=== PATIENT | female | born 1950 | race Hispanic/Latino ===

== ENCOUNTER 2022-08-18 21:35 | Inpatient (IN) | payer OTHER ==
[2022-08-18] MEDS ORDERED: Senokot S 8.6-50 MG TAB PO PRN (22:08)
[2022-08-18] MEDS ORDERED: Dextrose 5% in Water 1,000 ML IV PRN (22:08)
[2022-08-18] MEDS ORDERED: Dextrose 50% Abboject 50 ML SYRINGE SLOW IVP PRN (22:08)
[2022-08-18] MEDS ORDERED: Calcium Carbonate 500 MG ChewTAB PO PRN (22:08)
[2022-08-18] MEDS ORDERED: Guaifenesin DM 100-10/5 ML UDCUP PO PRN (22:08)
[2022-08-18] MEDS ORDERED: Ondansetron PF 4 MG/2 ML Vial IVP PRN (22:08)
[2022-08-18] MEDS ORDERED: Nitroglycerin 2% Ointment 1 INCH/1 GM Packet TOP SCH ×2 (22:30→23:00)
[2022-08-18] MEDS: Furosemide 20 MG/2 ML VIAL SLOW IVP SCH ×2 (22:39→22:40)
[2022-08-18] MEDS ORDERED: Aspirin 81 mg Enteric Coated Tablet PO SCH (23:00)
[2022-08-18] MEDS ORDERED: Carvedilol 12.5 MG TAB PO SCH (23:00)
[2022-08-18 23:21] VITALS: BMI 28.3
[2022-08-18 23:36] LABS: CKMB 0.9 ng/mL (0-6.6)
[2022-08-18 23:47] LABS: Legionella Urinary Ag Negative (Negative); Strep pneumo Urine Ag NEGATIVE (NEGATIVE)
[2022-08-19] MEDS ORDERED: Losartan 25 MG TAB PO SCH ×2 (00:45→09:00)
[2022-08-19] MEDS ORDERED: Labetalol HCl 100 MG/20 ML VIAL SLOW IVP SCH (04:30)
[2022-08-19 06:04] LABS: #Eosinphils 0.1 10x3/uL (0.0-0.5); #Monocytes 0.8 10x3/uL (0.0-1.1); #Neutrophils 10.2 10x3/uL (1.5-8.4); %Basophils 0.3 % (0.0-2.0); %Eosinophils 0.6 % (0.0-6.0); %Lymphocytes 3.6 % (18.0-47.0); %Monocytes 7.2 % (0.0-10.0); %Neutrophils 86.9 % (40.0-75.0); Mean Corpuscular HGB CONC 30.2 g/dL (32.0-36.0); Mean Corpuscular Hemoglobin 25.5 pg (27.0-33.0); Mean Corpuscular Volume 84.4 fl (81.6-98.3); Mean Platelet Volume 11.6 fl (7.4-10.4); Platelet Count 315 10x3/uL (150-450); RBC Distribution Width 18.2 % (11.5-14.5); Red Blood Cell (RBC) Count 3.92 10x6/uL (3.90-5.03); White Blood Cell (WBC) Count 11.7 10x3/uL (3.5-10.5)
[2022-08-19 06:29] LABS: Anion Gap 21 mmol/L (10-20); BUN (Urea Nitrogen) 18 mg/dL (9.8-20.1); Calc. Creatinine Clearance 76 mL/min (70-130); Calcium 8.6 mg/dL (7.8-10.44); Carbon Dioxide 21 mmol/L (23-31); Chloride 101 mmol/L (98-107); Estimated GFR 88; Glucose 121 mg/dL (83-110); Potassium 4.7 mmol/L (3.5-5.1); Sodium 138 mmol/L (136-145)
[2022-08-19] MEDS: Furosemide 40 MG/4 ML VIAL SLOW IVP SCH ×2 (06:39→09:25)
[2022-08-19 07:32] LABS: CKMB 1.3 ng/mL (0-6.6)
[2022-08-19] MEDS ORDERED: Tacrolimus 1 MG CAP PO SCH (09:00)
[2022-08-19] MEDS ORDERED: Losartan Potassium 50 MG TAB PO SCH (09:00)
[2022-08-19] MEDS: Aspirin 81 mg Enteric Coated Tablet PO SCH (09:25)
[2022-08-19] MEDS: hydrALAZINE 25 MG TAB PO SCH ×3 (09:25→21:00)
[2022-08-19] MEDS: NIFEdipine XL 60 MG TAB PO SCH ×2 (09:25→21:00)
[2022-08-19] MEDS: glipiZIDE 5 MG TAB PO SCH (09:26)
[2022-08-19] MEDS: Carvedilol 25 MG TAB PO SCH ×2 (09:26→15:33)
[2022-08-19] MEDS: Mycophenolate 250 MG CAP PO SCH ×2 (09:26→21:39)
[2022-08-19] MEDS: predniSONE 5 MG TAB PO SCH (10:22)
[2022-08-19] MEDS: Tacrolimus 1 MG CAP PO SCH ×2 (10:22→21:37)
[2022-08-19] MEDS: HumaLOG 300 UNITS/3 ML VIAL SC PRN ×2 (12:12→16:49)
[2022-08-19] MEDS ORDERED: Communication Order-Pharmacy FS SCH (12:45)
[2022-08-20 05:50] LABS: #Eosinphils 0.3 10x3/uL (0.0-0.5); #Neutrophils 8.8 10x3/uL (1.5-8.4); %Basophils 0.3 % (0.0-2.0); %Eosinophils 2.4 % (0.0-6.0); %Lymphocytes 4.2 % (18.0-47.0); %Monocytes 9.5 % (0.0-10.0); %Neutrophils 83.1 % (40.0-75.0); Mean Corpuscular HGB CONC 30.6 g/dL (32.0-36.0); Mean Corpuscular Hemoglobin 25.4 pg (27.0-33.0); Mean Corpuscular Volume 83.2 fl (81.6-98.3); Mean Platelet Volume 10.8 fl (7.4-10.4); Platelet Count 271 10x3/uL (150-450); RBC Distribution Width 17.7 % (11.5-14.5); Red Blood Cell (RBC) Count 3.93 10x6/uL (3.90-5.03); White Blood Cell (WBC) Count 10.6 10x3/uL (3.5-10.5)
[2022-08-20 05:53] LABS: INR-International Normal Ratio 1.2; PTT 29.3 sec (22.0-33.0); Prothrombin Time 12.5 sec (9.5-12.1)
[2022-08-20 05:57] LABS: ALT (SGPT) 10 U/L (8-55); AST (SGOT) 14 U/L (5-34); Albumin 3.4 g/dL (3.4-4.8); Alkaline Phosphatase 50 U/L (40-110); Anion Gap 16 mmol/L (10-20); BUN (Urea Nitrogen) 19 mg/dL (9.8-20.1); Bilirubin, Total 1.3 mg/dL (0.2-1.2); Calc. Creatinine Clearance 75 mL/min (70-130); Calcium 8.9 mg/dL (7.8-10.44); Carbon Dioxide 28 mmol/L (23-31); Chloride 98 mmol/L (98-107); Estimated GFR 86; Globulin 2.7 g/dL (2.4-3.5); Glucose 120 mg/dL (83-110); Potassium 3.4 mmol/L (3.5-5.1); Protein, Total 6.1 g/dL (5.8-8.1); Sodium 139 mmol/L (136-145)
[2022-08-20] MEDS: hydrALAZINE 25 MG TAB PO SCH ×3 (06:27→09:20)
[2022-08-20] MEDS: Aspirin 81 mg Enteric Coated Tablet PO SCH (06:28)
[2022-08-20] MEDS: NIFEdipine XL 60 MG TAB PO SCH (06:28)
[2022-08-20] MEDS: Carvedilol 25 MG TAB PO SCH ×2 (06:28→15:05)
[2022-08-20] MEDS: Furosemide 40 MG/4 ML VIAL SLOW IVP SCH ×2 (07:21→15:05)
[2022-08-20] MEDS: Potassium Chloride 20 MEQ TAB PO SCH ×2 (09:12→09:19)
[2022-08-20] MEDS: Mycophenolate 250 MG CAP PO SCH ×2 (09:12→22:15)
[2022-08-20] MEDS: predniSONE 5 MG TAB PO SCH (09:13)
[2022-08-20] MEDS: glipiZIDE 5 MG TAB PO SCH (09:13)
[2022-08-20] MEDS: Valsartan 80 MG TAB PO SCH (09:18)
[2022-08-20] MEDS: Tacrolimus 1 MG CAP PO SCH ×2 (09:19→22:15)
[2022-08-20] MEDS ORDERED: Lidocaine 1% (PF) 30 ML VIAL ONE (10:20)
[2022-08-20] MEDS ORDERED: Iopamidol 300 61% 100 ML VIAL FS ONE (10:20)
[2022-08-20] MEDS ORDERED: Fentanyl 100 MCG/2 ML VIAL ONE (10:21)
[2022-08-20] MEDS ORDERED: Midazolam HCl 2 mg/2 ml Vial ONE (10:21)
[2022-08-20] MEDS ORDERED: Acetaminophen/Codeine 30-300mg Tablet PO PRN ×2 (11:08)
[2022-08-20] MEDS ORDERED: Sodium Chloride 0.9% 200 ML IV PRN (11:08)
[2022-08-20 11:34] LABS: ALV-art Gradient 59.345 mmHg (0-20); Actual Bicarbonate (HCO3a) 26.3 mEq/L (22-28); Base Excess (BEa) 1.7 mEq/L (-2.0 to +3.0); CO2 Tension 41.1 mmHg (35.0-45.0); Calcium, Ionized (arterial) 0.97 mmol/L (1.12-1.30); Carboxyhemoglobin (COHb) 1.2 gm% (0.0-3.0); Hemoglobin (Hb) 9.7 g/dL (12.0-16.0); O2 Tension (PaO2), arterial 60.4 mmHg (> 70.0); Potassium - ABG Lab 3.2 mmol/L (3.70-5.30); Puncture Site Other Site; RapidComm Collect By CBN; pH, Arterial 7.42 (7.35-7.45)
[2022-08-20 11:35] LABS: Actual Bicarbonate (HCO3v) 31 mEq/L (22-28); Base Excess 5.4 mEq/L (-2 - +2); Calcium, Ionized (venous) 1.15 mmol/L (1.16-1.32); Chloride (VBG) 97 mmol/L (98-106); Hemoglobin (Hb) 10.3 g/dL (11.7-16.1); Potassium (VBG) 3.47 mmol/L (3.70-5.30); Puncture Site Other Site; RapidComm Collect By CBN; Sodium 136.1 mmol/L (133-146); pH (venous) 7.41 (7.32-7.43)
[2022-08-20 11:37] LABS: Actual Bicarbonate (HCO3v) 29 mEq/L (22-28); Base Excess 4.3 mEq/L (-2 - +2); Calcium, Ionized (venous) 1.16 mmol/L (1.16-1.32); Chloride (VBG) 96 mmol/L (98-106); Hemoglobin (Hb) 10.4 g/dL (11.7-16.1); Potassium (VBG) 3.49 mmol/L (3.70-5.30); Puncture Site Other Site; RapidComm Collect By CBN; Sodium 135.2 mmol/L (133-146); pH (venous) 7.42 (7.32-7.43)
[2022-08-20] MEDS: Sildenafil Citrate 20 MG TAB PO SCH ×2 (15:06→22:15)
[2022-08-20] MEDS: HumaLOG 300 UNITS/3 ML VIAL SC PRN ×2 (16:19→22:31)
[2022-08-21] MEDS: Acetaminophen 325 MG TAB PO PRN ×2 (04:26→10:55)
[2022-08-21] MEDS: HumaLOG 300 UNITS/3 ML VIAL SC PRN ×2 (05:06→23:57)
[2022-08-21 05:14] LABS: #Eosinphils 0.2 10x3/uL (0.0-0.5); #Monocytes 1.3 10x3/uL (0.0-1.1); #Neutrophils 9.3 10x3/uL (1.5-8.4); %Basophils 0.3 % (0.0-2.0); %Eosinophils 1.9 % (0.0-6.0); %Lymphocytes 4.2 % (18.0-47.0); %Monocytes 11.4 % (0.0-10.0); %Neutrophils 81.6 % (40.0-75.0); Hemoglobin 9.7 g/dL (12.0-15.5); Mean Corpuscular HGB CONC 30.6 g/dL (32.0-36.0); Mean Corpuscular Hemoglobin 25.6 pg (27.0-33.0); Mean Corpuscular Volume 83.6 fl (81.6-98.3); Mean Platelet Volume 11.6 fl (7.4-10.4); Platelet Count 268 10x3/uL (150-450); RBC Distribution Width 17.5 % (11.5-14.5); Red Blood Cell (RBC) Count 3.79 10x6/uL (3.90-5.03); White Blood Cell (WBC) Count 11.4 10x3/uL (3.5-10.5)
[2022-08-21 05:37] LABS: Anion Gap 18 mmol/L (10-20); BUN (Urea Nitrogen) 25 mg/dL (9.8-20.1); Calc. Creatinine Clearance 60 mL/min (70-130); Calcium 8.7 mg/dL (7.8-10.44); Carbon Dioxide 24 mmol/L (23-31); Chloride 99 mmol/L (98-107); Estimated GFR 67; Glucose 223 mg/dL (83-110); Potassium 4.1 mmol/L (3.5-5.1); Sodium 137 mmol/L (136-145)
[2022-08-21] MEDS: Furosemide 40 MG/4 ML VIAL SLOW IVP SCH ×2 (05:45→17:36)
[2022-08-21] MEDS: Carvedilol 25 MG TAB PO SCH ×2 (10:56→17:37)
[2022-08-21] MEDS: NIFEdipine XL 30 MG TAB PO SCH (10:59)
[2022-08-21] MEDS: Sildenafil Citrate 20 MG TAB PO SCH ×3 (11:00→21:04)
[2022-08-21] MEDS: Aspirin 81 mg Enteric Coated Tablet PO SCH (11:00)
[2022-08-21] MEDS: glipiZIDE 5 MG TAB PO SCH (11:00)
[2022-08-21] MEDS: predniSONE 5 MG TAB PO SCH (11:01)
[2022-08-21] MEDS: Tacrolimus 1 MG CAP PO SCH ×2 (11:02→21:03)
[2022-08-21] MEDS: hydrALAZINE 25 MG TAB PO SCH ×3 (11:03→21:03)
[2022-08-21] MEDS: Potassium Chloride 20 MEQ TAB PO SCH ×2 (11:06→17:37)
[2022-08-21] MEDS: Mycophenolate 250 MG CAP PO SCH ×2 (11:07→21:04)
[2022-08-21] MEDS: Valsartan 80 MG TAB PO SCH (14:04)
[2022-08-22 05:25] LABS: Anion Gap 17 mmol/L (10-20); BUN (Urea Nitrogen) 26 mg/dL (9.8-20.1); Calc. Creatinine Clearance 55 mL/min (70-130); Calcium 9.4 mg/dL (7.8-10.44); Carbon Dioxide 21 mmol/L (23-31); Cardiac Risk 4.7 (Less than 4.5); Chloride 104 mmol/L (98-107); Cholesterol 175 mg/dl (< 200 Desired); Estimated GFR 60; Glucose 250 mg/dL (83-110); HDL Cholesterol 37 mg/dL (>60 Neg Risk); LDL Cholesterol, Calculated 120 mg/dL; Potassium 5.2 mmol/L (3.5-5.1); Sodium 137 mmol/L (136-145); Triglycerides 90 mg/dL (Less than 150)
[2022-08-22 05:40] LABS: Hemoglobin 10.6 g/dL (12.0-15.5); Mean Corpuscular HGB CONC 30.2 g/dL (32.0-36.0); Mean Corpuscular Hemoglobin 25.4 pg (27.0-33.0); Mean Platelet Volume 11.6 fl (7.4-10.4); Platelet Count 327 10x3/uL (150-450); RBC Distribution Width 17.3 % (11.5-14.5); Red Blood Cell (RBC) Count 4.18 10x6/uL (3.90-5.03); White Blood Cell (WBC) Count 13.4 10x3/uL (3.5-10.5)
[2022-08-22 05:54] LABS: #Eosinphils 0.2 10x3/uL (0.0-0.5); #Monocytes 1.5 10x3/uL (0.0-1.1); %Basophils 0.2 % (0.0-2.0); %Eosinophils 1.5 % (0.0-6.0); %Lymphocytes 3.4 % (18.0-47.0); %Monocytes 11.5 % (0.0-10.0); %Neutrophils 82.9 % (40.0-75.0)
[2022-08-22] MEDS: HumaLOG 300 UNITS/3 ML VIAL SC PRN ×3 (06:05→19:47)
[2022-08-22] MEDS: Furosemide 40 MG/4 ML VIAL SLOW IVP SCH (06:08)
[2022-08-22] MEDS ORDERED: Furosemide 40 MG TAB PO SCH (09:00)
[2022-08-22] MEDS: NIFEdipine XL 30 MG TAB PO SCH (09:34)
[2022-08-22] MEDS: hydrALAZINE 25 MG TAB PO SCH ×3 (09:34→21:57)
[2022-08-22] MEDS: Aspirin 81 mg Enteric Coated Tablet PO SCH (09:35)
[2022-08-22] MEDS: Potassium Chloride 20 MEQ TAB PO SCH (09:35)
[2022-08-22] MEDS: Mycophenolate 250 MG CAP PO SCH ×2 (09:36→21:57)
[2022-08-22] MEDS: glipiZIDE 5 MG TAB PO SCH (09:36)
[2022-08-22] MEDS: Tacrolimus 1 MG CAP PO SCH ×2 (09:36→21:58)
[2022-08-22] MEDS: Sildenafil Citrate 20 MG TAB PO SCH ×3 (09:37→21:57)
[2022-08-22] MEDS: predniSONE 5 MG TAB PO SCH (09:37)
[2022-08-22] MEDS: Carvedilol 25 MG TAB PO SCH ×2 (09:37→17:00)
[2022-08-22] MEDS: Atorvastatin Calcium 40 MG TAB PO SCH (21:57)
[2022-08-23] MEDS: HumaLOG 300 UNITS/3 ML VIAL SC PRN ×3 (00:43→17:32)
[2022-08-23 04:22] LABS: #Basophils 0.1 10x3/uL (0.0-0.2); #Eosinphils 0.3 10x3/uL (0.0-0.5); #Monocytes 1.6 10x3/uL (0.0-1.1); #Neutrophils 8.9 10x3/uL (1.5-8.4); %Basophils 0.4 % (0.0-2.0); %Eosinophils 2.2 % (0.0-6.0); %Lymphocytes 5.9 % (18.0-47.0); %Monocytes 13.9 % (0.0-10.0); %Neutrophils 77.1 % (40.0-75.0); Hemoglobin 9.8 g/dL (12.0-15.5); Mean Corpuscular HGB CONC 30.1 g/dL (32.0-36.0); Mean Corpuscular Hemoglobin 25.3 pg (27.0-33.0); Mean Corpuscular Volume 84.2 fl (81.6-98.3); Mean Platelet Volume 11.5 fl (7.4-10.4); Platelet Count 284 10x3/uL (150-450); RBC Distribution Width 17.2 % (11.5-14.5); Red Blood Cell (RBC) Count 3.87 10x6/uL (3.90-5.03); White Blood Cell (WBC) Count 11.6 10x3/uL (3.5-10.5)
[2022-08-23 04:33] LABS: Anion Gap 14 mmol/L (10-20); BUN (Urea Nitrogen) 33 mg/dL (9.8-20.1); Calc. Creatinine Clearance 43 mL/min (70-130); Calcium 9.4 mg/dL (7.8-10.44); Carbon Dioxide 26 mmol/L (23-31); Chloride 100 mmol/L (98-107); Estimated GFR 45; Glucose 138 mg/dL (83-110); Potassium 4.9 mmol/L (3.5-5.1); Sodium 135 mmol/L (136-145)
[2022-08-23] MEDS: Potassium Chloride 20 MEQ TAB PO SCH ×2 (07:53→08:57)
[2022-08-23] MEDS: hydrALAZINE 25 MG TAB PO SCH ×3 (08:58→21:37)
[2022-08-23] MEDS: Mycophenolate 250 MG CAP PO SCH ×2 (08:58→21:38)
[2022-08-23] MEDS: Tacrolimus 1 MG CAP PO SCH ×2 (09:00→21:38)
[2022-08-23] MEDS: glipiZIDE 5 MG TAB PO SCH (09:01)
[2022-08-23] MEDS: predniSONE 5 MG TAB PO SCH (09:01)
[2022-08-23] MEDS: Aspirin 81 mg Enteric Coated Tablet PO SCH (09:01)
[2022-08-23] MEDS: Sildenafil Citrate 20 MG TAB PO SCH ×3 (09:02→21:38)
[2022-08-23] MEDS: Carvedilol 25 MG TAB PO SCH ×2 (09:04→17:10)
[2022-08-23 17:14] LABS: Tacrolimus 10.3 ng/mL (2.0-20.0)
[2022-08-23 18:34] LABS: HIV (1/2) Antibody/Antigen Non-Reactive (NonReactive); HIV 1/2 INDEX 0.09 S/CO (<1.00)
[2022-08-23] MEDS: Atorvastatin Calcium 40 MG TAB PO SCH (21:37)
[2022-08-24 05:38] LABS: Anion Gap 17 mmol/L (10-20); BUN (Urea Nitrogen) 39 mg/dL (9.8-20.1); Calc. Creatinine Clearance 40 mL/min (70-130); Calcium 9.8 mg/dL (7.8-10.44); Carbon Dioxide 22 mmol/L (23-31); Chloride 103 mmol/L (98-107); Estimated GFR 41; Glucose 190 mg/dL (83-110); Potassium 5.6 mmol/L (3.5-5.1); Sodium 136 mmol/L (136-145)
[2022-08-24] MEDS ORDERED: LOKELMA 10 GM PACKET PO SCH (09:00)
[2022-08-24] MEDS: Tacrolimus 1 MG CAP PO SCH ×2 (09:05→21:05)
[2022-08-24] MEDS: predniSONE 5 MG TAB PO SCH (09:06)
[2022-08-24] MEDS: Aspirin 81 mg Enteric Coated Tablet PO SCH (09:06)
[2022-08-24] MEDS: Carvedilol 25 MG TAB PO SCH ×2 (09:06→16:47)
[2022-08-24] MEDS: Mycophenolate 250 MG CAP PO SCH ×2 (09:06→21:04)
[2022-08-24] MEDS: glipiZIDE 5 MG TAB PO SCH (09:06)
[2022-08-24] MEDS: NIFEdipine XL 30 MG TAB PO SCH (09:06)
[2022-08-24] MEDS: hydrALAZINE 25 MG TAB PO SCH ×3 (09:06→21:03)
[2022-08-24] MEDS: Sildenafil Citrate 20 MG TAB PO SCH ×3 (09:06→21:04)
[2022-08-24 12:35] LABS: Bilirubin Neg (Negative); Blood, Urine Negative (Negative); Clarity Clear (Clear); Glucose, Urine (Dipstick) Normal (Negative); Ketone, Urine Negative (Negative); Leukocyte Negative (Negative); Nitrite Negative (Negative); Protein, Urine (Dipstick) Negative (Neg-Trace); Specific Gravity, Urine 1.015 (1.005-1.030); Urobilinogen Normal mg/dL (Less than 2)
[2022-08-24] MEDS: HumaLOG 300 UNITS/3 ML VIAL SC PRN ×3 (12:43→21:05)
[2022-08-24 13:02] LABS: Bacteria/HPF 2+ HPF (None Seen); RBC/HPF 0-3 HPF (0-3); Renal Epithelial 0-3 HPF (None Seen); Squamous Epithelial 0-3 HPF (0-3); WBC/HPF 0-3 HPF (0-3)
[2022-08-24 13:18] LABS: ANA Symphony (Qualitative) Negative (Negative); ANA Symphony (Quantitative) 0.3 Ratio (< 0.7 Negative); dsDNA IgG Antibody 0.9 IU/mL (<10 Negative)
[2022-08-24 15:32] LABS: SARS-CoV-2 NAA Rapid Test Not Detected (NotDetected)
[2022-08-24 16:14] LABS: Tacrolimus 9.2 ng/mL (2.0-20.0)
[2022-08-24] MEDS: Sodium Chloride 0.45% 1,000 ML IV SCH (16:51)
[2022-08-24] MEDS ORDERED: Lantus 1000 UNITS/10 ML VIAL SC SCH (20:00)
[2022-08-24] MEDS: Atorvastatin Calcium 40 MG TAB PO SCH (21:04)
[2022-08-25 04:56] LABS: #Eosinphils 0.3 10x3/uL (0.0-0.5); #Monocytes 0.9 10x3/uL (0.0-1.1); #Neutrophils 7.2 10x3/uL (1.5-8.4); %Basophils 0.4 % (0.0-2.0); %Eosinophils 2.9 % (0.0-6.0); %Lymphocytes 6.5 % (18.0-47.0); %Monocytes 10.1 % (0.0-10.0); %Neutrophils 79.5 % (40.0-75.0); Hemoglobin 9.1 g/dL (12.0-15.5); Mean Corpuscular HGB CONC 30.2 g/dL (32.0-36.0); Mean Corpuscular Hemoglobin 25.2 pg (27.0-33.0); Mean Corpuscular Volume 83.4 fl (81.6-98.3); Mean Platelet Volume 10.7 fl (7.4-10.4); Platelet Count 266 10x3/uL (150-450); RBC Distribution Width 16.8 % (11.5-14.5); Red Blood Cell (RBC) Count 3.61 10x6/uL (3.90-5.03)
[2022-08-25 05:08] LABS: Albumin 3.2 g/dL (3.4-4.8); Anion Gap 15 mmol/L (10-20); BUN (Urea Nitrogen) 38 mg/dL (9.8-20.1); BUN/Creatinine Ratio 29.46; Calc. Creatinine Clearance 38 mL/min (70-130); Calcium 9.2 mg/dL (7.8-10.44); Carbon Dioxide 23 mmol/L (23-31); Chloride 102 mmol/L (98-107); Estimated GFR 44; Glucose 158 mg/dL (83-110); Phosphorus 3.6 mg/dL (2.3-4.7); Potassium 5.5 mmol/L (3.5-5.1); Sodium 134 mmol/L (136-145)
[2022-08-25] MEDS: Sodium Chloride 0.45% 1,000 ML IV SCH (06:44)
[2022-08-25] MEDS ORDERED: LOKELMA 10 GM PACKET PO SCH (08:00)
[2022-08-25] MEDS: NIFEdipine XL 30 MG TAB PO SCH (08:24)
[2022-08-25] MEDS: predniSONE 5 MG TAB PO SCH (08:24)
[2022-08-25] MEDS: Aspirin 81 mg Enteric Coated Tablet PO SCH (08:25)
[2022-08-25] MEDS: Tacrolimus 1 MG CAP PO SCH ×2 (08:25→20:22)
[2022-08-25] MEDS: Sildenafil Citrate 20 MG TAB PO SCH ×3 (08:25→20:23)
[2022-08-25] MEDS: Mycophenolate 250 MG CAP PO SCH ×2 (08:25→20:24)
[2022-08-25] MEDS: glipiZIDE 5 MG TAB PO SCH (08:25)
[2022-08-25] MEDS: hydrALAZINE 25 MG TAB PO SCH ×3 (08:25→20:23)
[2022-08-25] MEDS: Carvedilol 25 MG TAB PO SCH ×2 (08:25→17:25)
[2022-08-25] MEDS: HumaLOG 300 UNITS/3 ML VIAL SC PRN (12:39)
[2022-08-25] MEDS: Atorvastatin Calcium 40 MG TAB PO SCH (20:23)
[2022-08-25 20:25] VITALS: BP 136/70
[2022-08-25] MEDS ORDERED: Senokot S 8.6-50 MG TAB PO SCH (21:00)
[2022-08-26 00:56] VITALS: TEMP 98.6
[2022-08-28 02:07] LABS: Tacrolimus 12.2 ng/mL (2.0-20.0)
[2022-08-28 14:13] LABS: Tacrolimus 22.9 ng/mL (2.0-20.0)
[2022-08-28 14:13] LABS: Tacrolimus 13.2 ng/mL (2.0-20.0)
== END 2022-08-25 21:15 | disposition short-term general hospital (02) | DRG 280 ==
LOC: CSHTELE 21:35
PROVIDERS: ADMIT Student in an Organized Health Care Education/Training Program; ATTEND Internal Medicine
PROC: 4A023N8 Measurement of Cardiac Sampling and Pressure, Bilateral, Percutaneous Approach (ICD-10-PCS; principal; 2022-08-20)
PROC: B2111ZZ Fluoroscopy of Multiple Coronary Arteries using Low Osmolar Contrast (ICD-10-PCS; 2022-08-20)
PROC: B2151ZZ Fluoroscopy of Left Heart using Low Osmolar Contrast (ICD-10-PCS; 2022-08-20)
PROC: 4A133R1 Monitoring of Arterial Saturation, Peripheral, Percutaneous Approach (ICD-10-PCS; 2022-08-20)
DX: I13.0 Hypertensive heart and chronic kidney disease with heart failure and stage 1 through stage 4 chronic kidney disease, or unspecified chronic kidney disease (principal); I21.A1 Myocardial infarction type 2; I50.31 Acute diastolic (congestive) heart failure; J96.01 Acute respiratory failure with hypoxia; T86.12 Kidney transplant failure; D84.821 Immunodeficiency due to drugs; N17.9 Acute kidney failure, unspecified; E87.1 Hypo-osmolality and hyponatremia; D63.1 Anemia in chronic kidney disease; E87.6 Hypokalemia; N18.2 Chronic kidney disease, stage 2 (mild); I25.10 Atherosclerotic heart disease of native coronary artery without angina pectoris; I27.20 Pulmonary hypertension, unspecified; R53.1 Weakness; Z20.822 Contact with and (suspected) exposure to COVID-19; I16.0 Hypertensive urgency; E66.9 Obesity, unspecified; E11.22 Type 2 diabetes mellitus with diabetic chronic kidney disease; Z82.49 Family history of ischemic heart disease and other diseases of the circulatory system; Z98.890 Other specified postprocedural states; Z68.25 Body mass index [BMI] 25.0-25.9, adult; Z79.82 Long term (current) use of aspirin; Z79.52 Long term (current) use of systemic steroids; Z79.899 Other long term (current) drug therapy; E87.5 Hyperkalemia; I07.1 Rheumatic tricuspid insufficiency
CPT/HCPCS: 36415; 36416; 71045; 80048; 80053; 80061; 80069; 80197; 81001; 82553; 82805; 83880; 84145; 84443; 84484; 85025; 85610; 85730; 86038; 86225; 87070; 87205; 87389; 87449; 87899; 93306; 93460; 94760; 94762; 99152; 99153; C1751; C1760; C1769; C1887; C1894; J0153; J1650; J1815; J1940; J2001; J2250; J3010; J7507; J7512; J7517; Q9967; U0002